=== PATIENT | female | born 1960 | race African-American/Black ===

== ENCOUNTER 2024-05-16 09:35 | Inpatient (IN) | payer MEDICAID ==
[~2024-05-16] VITALS: Ht 154.9 cm; Wt 80.3 kg
[~2024-05-16 09:35] MED LIST: IBUP-1174
--- NOTE | 2024-05-16 09:43 | ECG ---
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
[2024-05-16 09:57] LABS: Basophils # (auto) 0 10 ^3/uL (0-0.2); Basophils % (auto) 0.9 % (0.0-2.0); Eosinophils # (auto) 0.1 10 ^3/uL (0-0.8); Eosinophils % (auto) 2.4 % (0.0-7.0); Hematocrit 42.2 % (36.0-46.0); Hemoglobin 14.3 g/dL (12.2-16.2); Lymphocytes # (auto) 2.7 10 ^3/uL (0.4-5.4); Lymphocytes % (auto) 51.3 % (10.0-50.0); Mean Corpuscular Hgb Conc. 33.9 g/dL (32.0-36.0); Mean Corpuscular Volume 88.5 fL (80.0-100.0); Monocytes # (auto) 0.5 10 ^3/uL (0-1.3); Monocytes % (auto) 9.6 % (0.0-12.0); Neutrophils # (auto) 1.9 10 ^3/uL (1.6-8.6); Neutrophils % (auto) 35.8 % (37.0-80.0); Nucleated Red Blood Cells % 0.1 %; Platelet Count (auto) 248 10^3/uL (140-450); Red Blood Cells 4.76 10^6/uL (4.0-5.20); Red Cell Distribution Width 14.4 % (11.8-14.3); White Blood Cell 5.3 10^3/uL (4.4-10.8)
[2024-05-16 09:58] VITALS: PULSE 67; RESP 17; O2SAT 97
[2024-05-16] MEDS: ASPirin 81 mg TAB PO ONE (09:58)
[2024-05-16 10:25] LABS: Partial Thromboplastin Time 26.3 SEC (24.5-34.5); Prothrombin Time 10.6 sec (9.3-11.8)
[2024-05-16 10:28] LABS: Alanine Aminotransferase 25 U/L (7-40); Albumin 4.5 g/dL (3.2-4.8); Alkaline Phosphatase 109 U/L (46-116); Anion Gap 10 (5-15); Aspartate Aminotransferase 19 U/L (13-40); BUN/Creatinine Ratio 20.3 (10.0-20.0); Blood Urea Nitrogen 15 mg/dL (9-23); Calcium 9.9 mg/dL (8.7-10.4); Carbon Dioxide 25 mmol/L (20-31); Chloride 107 mmol/L (98-107); Glucose 113 mg/dL (74-106); Magnesium 2.1 mg/dL (1.6-2.6); Potassium 3.4 mmol/L (3.5-5.1); Sodium 142 mmol/L (136-145)
[2024-05-16 10:29] LABS: Total Protein 7.6 g/dL (5.7-8.2)
--- NOTE | 2024-05-16 10:47 | ECG ---
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
--- NOTE | 2024-05-16 11:02 | DVH ---
EXAM: XY CHEST PORTABLE Indication: CP Technique: Single frontal view of the chest was obtained Comparison: None FINDINGS: Lines and Tubes: None Lungs: No focal consolidation. Pleura: No effusion. No pneumothorax. Cardiomediastinal contours: Unremarkable Bones: No acute osseous abnormality. IMPRESSION: No acute cardiopulmonary disease.
--- NOTE | 2024-05-16 11:31 | ED.PDOC ---
HPI Comments 63-year-old male who comes in with chief complaint of chest pain times approximately one week. The patient states that the chest pain was followed by shortness for breath. The pain is somewhat substernal and radiates towards the right. The patient was also having some left arm numbness. There has been no nausea or vomiting but there has been some mild diarrhea. There has been no fever or cough. She states that the chest pain is somewhat pressure-like. She was able to ambulate into the emergency department's without any difficulty. Chief Complaint: Chest Pain Time Seen by MD: 09:44 Primary Care Provider: jaden Reviewed Notes: Nurses Notes, Medications, Allergies Allergies: Coded Allergies: Penicillins (Verified Allergy, Unknown, 07/05/10) Home Meds Reported Medications Ibuprofen (Motrin Ib) 200 Mg Tab 07/05/10 Information Source: Patient Mode of Arrival: Ambulatory Severity: Mild Timing: Days Duration: Since onset Prehospital treatment: None Location: Chest (L) Radiation: Arm (L) Quality: Pressure Onset: At Rest Cardiac Risk Factors: Family History, HTN, Diabetes (Borderline diabetes) History of: None Modifying Factors: Nothing Associated Signs and Symptoms: SOB, Other (Diarrhea) Past Medical History PAST MEDICAL HISTORY: DM (Borderline diabetes), HTN Surgical History: Hernia Repair, Hysterectomy Surgical History (Other): Previous colon resection, knee surgery SHIPPING AND RECEIVING COORDINATOR History: No Pertinent SHIPPING AND RECEIVING COORDINATOR History Family History Family History: Unobtainable Social History Smoker: Non-Smoker Alcohol: Occasionally Drugs: Denies Drug Use Lives In: Home Constitutional: denies: chills, diaphoresis, fatigue, fever, malaise, sweats, weakness, others EENTM: denies: blurred vision, double vision, ear bleeding, ear discharge, ear drainage, ear pain, ear ringing, eye pain, eye redness, hearing loss, mouth pain, mouth swelling, nasal discharge, nose bleeding, nose congestion, nose pain, photophobia, tearing, throat pain, throat swelling, voice changes, others Respiratory: reports: SOB with excertion; denies: cough, hemoptysis, orthopnea, SOB at rest, shortness of breath, stridor, wheezing, others Cardiovascular: reports: chest pain; denies: dizzy spells, diaphoresis, Dyspnea on exertion, edema, irregular heart beat, left arm pain, lightheadedness, palpitations, PND, syncope, others Gastrointestinal: reports: diarrhea; denies: abdomen distended, abdominal pain, blood streaked bowels, constipated, dysphagia, difficulty swallowing, hematemesis, melena, nausea, poor appetite, poor fluid intake, rectal bleeding, rectal pain, vomiting, others Genitourinary: denies: abnormal vagina bleeding, burning, dyspareunia, dysuria, flank pain, frequency, hematuria, incontinence, pain, , vagina discharge, urgency, others Neurological: denies: dizziness, fainting, headache, left sided numbness, left sided weakness, numbness, paresthesia, pre-existing deficit, right sided numbness, right sided weakness, seizure, speech problems, tingling, tremors, weakness, others Musculoskeletal: denies: back pain, gout, joint pain, joint swelling, muscle pain, muscle stiffness, neck pain, others Integumetry: denies: bruises, change in color, change in hair/nails, dryness, laceration, lesions, lumps, rash, wounds, others Allergic/Immunocompromised: denies: Difficulty Healing, Frequent Infections, Hives, Itching, others Hematologic/Lymphatic: denies: anemia, blood clots, easy bleeding, easy bruising, swollen glands, others Endocrine: denies: excessive hunger, excessive sweating, excessive thirst, excessive urination, flushing, intolerance to cold, intolerance to heat, unexplained weight gain, unexplained weight loss, others Psychiatric: denies: anxiety, bipolar disorder, depression, hopeless, panic disorder, schizophrenia, sleepless, suicidal, others Physical Exam General Appearance: Moderate Distress HEENT: Normal ENT Inspection, Pharynx Normal, TMs Normal Neck: Full Range of Motion, Non-Tender, Normal, Normal Inspection Respiratory: Chest Non-Tender, Lungs Clear, No Accessory Muscle Use, No Respiratory Distress, Normal Breath Sounds Cardiovascular: No Edema, No JVD, No Murmur, No Gallop, Normal Peripheral Pulses, Regular Rate/Rhythm Breast Exam: Deferred Gastrointestinal: No Organomegaly, Non Tender, No Pulsatile Mass, Normal Bowel Sounds, Soft Genitalia: Deferred Pelvic: Deferred Rectal: Deferred Extremities: No calf tenderness, Normal capillary refill, Normal inspection, Normal range of motion, Non-tender, No pedal edema Musculoskeletal : Apperance: Normal Neurologic: Alert, platinumsmith II-XII nml as Tested, No Motor Deficits, Normal Affect, Normal Mood, No Sensory Deficits Cerebellar Function: Normal Reflexes: Normal Skin: Dry, Normal Color, Warm Lymphatic: No Adenopathy Was a procedure done? Was a procedure done?: No CP Differential Dx Differential Diagnosis: Angina, NC, Pulmonary Embolus Differential Diagnosis: CHF X-Ray, Labs, Meds, VS Vital Signs Date Time Temp Pulse Resp B/P (MAP) Pulse Ox O2 Delivery O2 Flow Rate FiO2 05/16/24 12:23 62 05/16/24 10:45 62 05/16/24 09:58 97.7 67 17 135/93 (107) 97 97.7 05/16/24 09:58 67 17 97 Room Air* 0 21 05/16/24 09:42 65 05/16/24 09:37 98.4 88 17 123/97 (106) 97 Lab Test 05/16/24 13:13 05/16/24 11:07 05/16/24 11:00 05/16/24 09:42 Range/Units Troponin I High Sensitivity Pending < 3 L < 3 L </=34 ng/L Urine Color Light-yellow Yellow Urine Clarity Clear Clear Urine pH 6.5 5.0-9.0 Urine Specific [place] 1.013 1.001-1.035 Urine Protein Negative Negative Urine Ketones Negative Negative Urine Blood Negative Negative /uL Urine Nitrite Negative Negative Urine Bilirubin Negative Negative Urine Urobilinogen Normal Negative mg/dL Urine Leukocyte Esterase Negative Negative /uL Urine RBC 1 0 - 4 /hpf Urine WBC None seen 0 - 5 /hpf Urine Squamous Epithelial Cells Few <5 /hpf Urine Bacteria None seen None Seen /hpf Urine Mucus Few None Seen Urine Glucose Normal Normal mg/dL White Blood Count 5.3 4.4-10.8 10^3/uL Red Blood Count 4.76 4.0-5.20 10^6/uL Hemoglobin 14.3 12.2-16.2 g/dL Hematocrit 42.2 36.0-46.0 % Mean Corpuscular Volume 88.5 80.0-100.0 fL Mean Corpuscular Hemoglobin 30.0 28.0-32.0 pg Mean Corpuscular Hemoglobin Concent 33.9 32.0-36.0 g/dL Red Cell Distribution Width 14.4 H 11.8-14.3 % Platelet Count 248 140-450 10^3/uL Mean Platelet Volume 8.6 6.9-10.8 fL Neutrophils (%) (Auto) 35.8 L 37.0-80.0 % Lymphocytes (%) (Auto) 51.3 H 10.0-50.0 % Monocytes (%) (Auto) 9.6 0.0-12.0 % Eosinophils (%) (Auto) 2.4 0.0-7.0 % Basophils (%) (Auto) 0.9 0.0-2.0 % Neutrophils # (Auto) 1.9 1.6-8.6 10 ^3/uL Lymphocytes # (Auto) 2.7 0.4-5.4 10 ^3/uL Monocytes # (Auto) 0.5 0-1.3 10 ^3/uL Eosinophils # (Auto) 0.1 0-0.8 10 ^3/uL Basophils # (Auto) 0 0-0.2 10 ^3/uL Nucleated Red Blood Cells 0.1 % Prothrombin Time 10.6 9.3-11.8 sec Prothrombin Time INR 1.00 0.9-1.15 Activated Partial Thromboplast Time 26.3 24.5-34.5 SEC Sodium Level 142 136-145 mmol/L Potassium Level 3.4 L 3.5-5.1 mmol/L Chloride Level 107 98-107 mmol/L Carbon Dioxide Level 25 20-31 mmol/L Anion Gap 10 5-15 Blood Urea Nitrogen 15 9-23 mg/dL Creatinine 0.74 0.550-1.02 mg/dL Glomerular Filtration Rate Calc 91 >90 mL/min BUN/Creatinine Ratio 20.3 H 10.0-20.0 Serum Glucose 113 H 74-106 mg/dL Calcium Level 9.9 8.7-10.4 mg/dL Magnesium Level 2.1 1.6-2.6 mg/dL Total Bilirubin 1.0 0.2-1.0 mg/dL Aspartate Amino Transferase (AST) 19 13-40 U/L Alanine Aminotransferase (ALT) 25 7-40 U/L Alkaline Phosphatase 109 46-116 U/L B-Type Natriuretic Peptide 25.66 0-100 pg/mL Total Protein 7.6 5.7-8.2 g/dL Albumin 4.5 3.2-4.8 g/dL Current Medications Medications (Trade) Dose Ordered Sig/Sp Route Start Time Stop Time Status Last Admin Aspirin 162 mg ONCE ONCE PO 05/16/24 10:00 05/16/24 10:01 DC 05/16/24 09:58 IV Hep-Lock was established The patient was given aspirin here in the emergency department's The CBC and chemistry panel are within normal limits The urine test is negative for any infection At this time, the patient was being admitted to the hospitalist The BNP is 25.66 At this time, the patient is being admitted with a diagnosis of acute myocardial ischemia Images Reviewed?: Images reviewed and evaluated by me Time of 1ST Reevaluation: 11:55 Reevaluation 1ST: Unchanged Patient Education/Counseling: Diagnosis, Treatment, Prognosis Family Education/Counseling: No Family Present Departure 1 Departure Time of Disposition: 13:35 Impression: Primary Impression: Acute myocardial ischemia Disposition: ADMITTED INPATIENT Admit to: [facility] Condition: Fair Critical Care Note Critical Care Time?: No Stability Stability form required: Yes Unstable for transfer: Telemetry monitoring (Telemetry monitoring required), ED Physician Assesment (Clinical assesment) Heart Score Heart Score: Heart Score Response (Comments) Value History Moderate Suspicious 1 EKG Repolarization Disturb 1 Age 45-64 1 Risk Factors >3 or Hx ASHD 2 Troponin Normal limit 0 Total 5 LON BELL MD May 16, 2024 11:31
[2024-05-16 12:16] LABS: Urine Bacteria None Seen /hpf (None Seen); Urine WBC None Seen /hpf (0 - 5)
[2024-05-16 12:27] LABS: Urine Blood Negative /uL (Negative); Urine Clarity Clear (Clear); Urine Color Light-Yellow (Yellow); Urine Mucus FEW (None Seen); Urine Protein, UAD Negative (Negative); Urine Specific Gravity 1.013 (1.001-1.035); Urine Urobilinogen Normal (Negative); Urine pH 6.5 (5.0-9.0)
--- NOTE | 2024-05-16 14:03 | ECG ---
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
[2024-05-16 17:45] VITALS: BP 130/95; PULSE 63; RESP 18; TEMP 97.8; O2SAT 94
[2024-05-16] MEDS ORDERED: hydrALAZINE HCL 10 MG TAB PO PRN (22:00)
[2024-05-16] MEDS ORDERED: ACETAMINOPHEN 325 MG TAB PO PRN (22:00)
[2024-05-16] MEDS ORDERED: MORPHINE SULFATE INJ 2 MG/ml SYRG IV PRN (22:00)
[2024-05-16] MEDS ORDERED: NITROGLYCERIN 0.4 MG SL TAB SL PRN (22:00)
[2024-05-16] MEDS ORDERED: MELATONIN 5 MG TAB PO PRN (22:00)
[2024-05-16] MEDS ORDERED: ONDANSETRON HCL 4 MG/2 ML VIAL IV PRN (22:00)
[2024-05-16] MEDS: ATORVASTATIN 20 MG TAB PO SCH (22:34)
[2024-05-16 23:32] VITALS: PULSE 63; RESP 16; O2SAT 94
[2024-05-17] VITALS (9 sets, daily range): BP systolic 111–136; BP diastolic 74–96; PULSE 48–70; RESP 16–20; TEMP 96.8–98.4; O2SAT 94–99
--- NOTE | 2024-05-17 00:25 | DVHHP2 ---
Admitting Diagnosis: Chest pain rule out ACS History of Present Illness History Source: Patient Exam Limitations: No limitations HPI Mrs. Becki Sears is a 63 yo female with a history of DM, hypertension, who presents with a chief complaint of midsternal chest pain/pressure like radiating to left arm and neck x 2-3 months on and off worsening yesterday. Patient denies nausea, vomiting, abdominal pain, diarrhea, constipation, headaches, dizziness, fevers, chills. Home Meds Reported Medications Cholecalciferol (VITAMIN D3) 2,000 Unit Tab, 2000 UNIT OR, TAB 05/17/24 Amlodipine Besylate (Amlodipine Besylate) 5 Mg Tab, 5 MG PO DAILY for 30 Days, MG 05/17/24 Ibuprofen (Motrin Ib) 200 Mg Tab 07/05/10 Past Medical History Cardiac: HTN Pulmonary: No pertinent Hx Central Nervous System: No pertinent Hx GI: No pertinent Hx Hemotology/Oncology: No pertinent Hx Hepatobiliary: No pertinent Hx Psychiatric: No pertinent Hx Musculoskeletal: No pertinent Hx Rheumotologic: No pertinent Hx Infectious Disease: No peritnent Hx ENT: No pertinent Hx Renal/: No pertinent Hx Endocrine: NIDDM Dermatology: No pertinent Hx Past Surgical History: Cholecystectomy, Hernia repair, Hysterctomy Smoker: No Hx (Negative) Alocohol: Occassional Drugs: None Lives with: With family Domestic Violence: Neg Review of Systems Constitutional: No symptom reported Ears, Nose, & Throat: No symptom reported Eyes: No symptom reported Pulmonary/Respiratory: No symptom reported Cardiovascular: Chest Pain Gastrointestinal: No symptom reported Genitourinary: No symptom reported Musculoskeletal: No symptom reported Skin: No symptom reported Psychiatric: No symptom reported Endocrine: No symptom reported Hemotologic/Lymphatic: No symptom reported H&P Exam Vital Signs Vital Signs Date Time Temp Pulse Resp B/P (MAP) Pulse Ox O2 Delivery O2 Flow Rate FiO2 05/16/24 23:51 97.9 65 20 128/95 (106) 94 97.9 05/16/24 23:32 Room Air* 0 21 General Appeara: Well developed, Well nourished, Normal Appearance Head Exam: Normal inspection Neck Exam: Normal inspection, Non-tender, Normal alignment Eye Exam: bilateral eye Normal inspection, bilateral eye PERRL, bilateral eye EOMI Ear Exam: bilateral ear Auricle normal Nasal Exam: Normal inspection Mouth: Normal Inspection Pulmonary/Respiratory: Normal inspection, Normal breath sounds, Chest non- tender, Lungs clear Cardiovascular/Chest: Normal inspection, Regular rate, Normal Rhythm Peripheral Pulses: 2+ dorsalis pedis (R), 2+ dorsalis pedis (L), 2+ Radial (R), 2+ Radial (L) Abdominal Exam: Normal bowel sounds, Soft, No tenderness Rectal Exam: Deferred Back Exam: Normal inspection Neuro/Mental St: Alert, Oriented Appearance: Appropriate appearance, Appropriate insight Eye contact/ Speech: Cooperative, Good eye contact, Normal speech Thoughts/Psych: Normal thought pattern Skin Exam: Normal inspection, Normal color, Warm/dry Lymphatic: Normal inspection Labs/Xrays Labs Test 05/16/24 22:19 05/16/24 11:00 05/16/24 09:42 Range/Units Troponin I High Sensitivity < 3 L </=34 ng/L Urine Color Light-yellow Yellow Urine Clarity Clear Clear Urine pH 6.5 5.0-9.0 Urine Specific [place] 1.013 1.001-1.035 Urine Protein Negative Negative Urine Ketones Negative Negative Urine Blood Negative Negative /uL Urine Nitrite Negative Negative Urine Bilirubin Negative Negative Urine Urobilinogen Normal Negative mg/dL Urine Leukocyte Esterase Negative Negative /uL Urine RBC 1 0 - 4 /hpf Urine WBC None seen 0 - 5 /hpf Urine Squamous Epithelial Cells Few <5 /hpf Urine Bacteria None seen None Seen /hpf Urine Mucus Few None Seen Urine Glucose Normal Normal mg/dL White Blood Count 5.3 4.4-10.8 10^3/uL Red Blood Count 4.76 4.0-5.20 10^6/uL Hemoglobin 14.3 12.2-16.2 g/dL Hematocrit 42.2 36.0-46.0 % Mean Corpuscular Volume 88.5 80.0-100.0 fL Mean Corpuscular Hemoglobin 30.0 28.0-32.0 pg Mean Corpuscular Hemoglobin Concent 33.9 32.0-36.0 g/dL Red Cell Distribution Width 14.4 H 11.8-14.3 % Platelet Count 248 140-450 10^3/uL Mean Platelet Volume 8.6 6.9-10.8 fL Neutrophils (%) (Auto) 35.8 L 37.0-80.0 % Lymphocytes (%) (Auto) 51.3 H 10.0-50.0 % Monocytes (%) (Auto) 9.6 0.0-12.0 % Eosinophils (%) (Auto) 2.4 0.0-7.0 % Basophils (%) (Auto) 0.9 0.0-2.0 % Neutrophils # (Auto) 1.9 1.6-8.6 10 ^3/uL Lymphocytes # (Auto) 2.7 0.4-5.4 10 ^3/uL Monocytes # (Auto) 0.5 0-1.3 10 ^3/uL Eosinophils # (Auto) 0.1 0-0.8 10 ^3/uL Basophils # (Auto) 0 0-0.2 10 ^3/uL Nucleated Red Blood Cells 0.1 % Prothrombin Time 10.6 9.3-11.8 sec Prothrombin Time INR 1.00 0.9-1.15 Activated Partial Thromboplast Time 26.3 24.5-34.5 SEC Sodium Level 142 136-145 mmol/L Potassium Level 3.4 L 3.5-5.1 mmol/L Chloride Level 107 98-107 mmol/L Carbon Dioxide Level 25 20-31 mmol/L Anion Gap 10 5-15 Blood Urea Nitrogen 15 9-23 mg/dL Creatinine 0.74 0.550-1.02 mg/dL Glomerular Filtration Rate Calc 91 >90 mL/min BUN/Creatinine Ratio 20.3 H 10.0-20.0 Serum Glucose 113 H 74-106 mg/dL Calcium Level 9.9 8.7-10.4 mg/dL Magnesium Level 2.1 1.6-2.6 mg/dL Total Bilirubin 1.0 0.2-1.0 mg/dL Aspartate Amino Transferase (AST) 19 13-40 U/L Alanine Aminotransferase (ALT) 25 7-40 U/L Alkaline Phosphatase 109 46-116 U/L B-Type Natriuretic Peptide 25.66 0-100 pg/mL Total Protein 7.6 5.7-8.2 g/dL Albumin 4.5 3.2-4.8 g/dL Assessment/Plan Problem List: (1) Chest pain Plan 63 yo female with known history of DM, hypertension presents to the hospital with chest pain. 1. Chest pain rule out ACS -Cardiology consultation, 2D echocardiogram, ASA, statin, serial troponin levels -Analgesics as needed Discussed all above with patient who verbalizes agreement and understanding of care plan. All questions were answered. Discussed assessment and care plan with supervising MD. Plan discussed with: Patient, Other Code Visit Code Visit Total Time (mins): 45 Additional Comments Additional Comments Additional Comments Patient is seen and evaluated and admitted by nurse practitioner claims auditor. Patient's chart is reviewed. I agree with the nurse practitioner's evaluation, documentation, assessment and care plan as outlined. DEEPTHI HEMPHILL May 17, 2024 00:25 KARMEN HENRIQUEZ MD May 17, 2024 16:52
[2024-05-17] MEDS: HYDROcodone-ACET 5/325MG TAB PO PRN (00:43)
[2024-05-17] MEDS ORDERED: CHOL20007 OR (01:19)
[2024-05-17] MEDS ORDERED: AMLO1TAB22 PO (01:19)
[2024-05-17 07:50] LABS: Triglycerides 216 mg/dL (< 150)
[2024-05-17 07:51] LABS: LDL Cholesterol 110 mg/dL (< 100)
[2024-05-17 07:52] LABS: Cholesterol 185 mg/dL (< 200); HDL Cholesterol 42 mg/dL (40-59)
[2024-05-17] MEDS: ENOXAPARIN SOD 40 MG/0.4 ML SYRINGE SC SCH (09:47)
[2024-05-17] MEDS: ASPirin 81 mg TAB PO SCH (09:47)
[2024-05-17] MEDS: FAMOTIDINE 20 MG TAB PO SCH (09:47)
[2024-05-17] MEDS: POTASSIUM CHL 20 Meq TABLET PO ONE (12:18)
--- NOTE | 2024-05-17 15:58 | DVHSR ---
APPROVED REPORT EXAM: Two-dimensional and M-mode echocardiogram with Doppler and color Doppler. Blood Pressure: 111/74 mmHg INDICATION Chest Pain RISK FACTORS Height: 61, Weight: 189 DIMENSIONS LVDd4.7 (3.8-5.7cm)LA (2D)3.5 (1.9-4.0cm)Aortic Root3.4 (2.0-3.7cm) LVDs3.1 (2.5-4.0cm)LA (MM) (1.9-4.0cm)Aortic Cusp Exc1.4 (1.5-2.0cm) EF (%) 62.0 (55-70%)Rt. Atrium (1.9-4.0cm)Asc. Aorta cm IVSd1.1 (0.7-1.1cm)RV (D) (1.8-2.4cm) PWd1.2 (0.7-1.1cm) Mitral Valve MitralMitral Stenosis E wave0.74m/sMV Mean GR.mmHg A wave0.63m/sMV Peak GR.78mmHg E/A ratio1.22D MVAcm2 DECEL [id number] 1/2 [id number] IVRTmsDop MVA2.69cm2 Aortic Valve Aortic ValveAortic Stenosis V11.19m/Joan Mean GR.3mmHg V21.23m/Joan Peak GR.6mmHg LVOT Diameter2.1 (1.8-2.4cm)Doppler AVA3.35cm2 Pulmonic Valve V20.93m/s Other Information Technically limited study due to body habitus. Conclusion Normal left ventricular size and dimension. Normal left ventricular systolic function estimated ejec tion fraction 55%. There is a grade 1 diastolic dysfunction. Normal right ventricular size and dimension. Normal right ventricular systolic function. Normal biatrial size and dimension. Normal aortic valve structure and function. Normal mitral valve structure and function. Normal tricuspid valve structure and function. The pulmonary valve is grossly normal. No pericardial effusion.
[2024-05-18] VITALS (13 sets, daily range): BP systolic 120–145; BP diastolic 45–111; PULSE 59–93; RESP 13–23; TEMP 97.6–98.5; O2SAT 93–99
--- NOTE | 2024-05-18 10:09 | DVHINCON2 ---
HISTORY OF PRESENT ILLNESS: The patient is a 63-year-old lady who comes complaining of chest pain, substernal in nature with radiating to the left breast and neck of about 1-week duration. She initially thought it was related to gastric reflux; however, it persisted with substernal pressure and increasing with severity and intensity. She does have a past history of hysterectomy and oophorectomy. History of colon mass that was removed, that turned out to be noncancerous. is her primary care doctor. SHE IS ALLERGIC TO PENICILLIN. She does not have a history of diabetes or hypertension that she knows of. She is nondrinker, nonsmoker. She is single, has 2 children, lives alone. FAMILY HISTORY: Strongly positive for coronary artery disease. Her mother underwent bypass with a history of diabetes and hypertension. SOCIAL HISTORY: As noted, she is a nondrinker, nonsmoker. REVIEW OF SYSTEMS: CONSTITUTIONAL: From a constitutional standpoint negative. ENT: Negative for double vision, discharge, ear pain, eye pain, hearing loss. CARDIAC AND RESPIRATORY: As noted above with a history of shortness of breath, hemoptysis or orthopnea. History of chest pain recently. Diaphoresis negative. GASTROINTESTINAL AND GENITOURINARY: Negative except for that noted above. NEUROLOGICAL: Negative. MUSCULOSKELETAL: Negative. INTEGUMENTARY: Negative. ALLERGY AND IMMUNOLOGY: Negative. HEMATOLOGICAL: Negative. ENDOCRINE: Negative. PSYCHIATRIC: Negative. PHYSICAL EXAMINATION: GENERAL: She is awake and responsive. She is in no acute distress at this time. VITAL SIGNS: Her blood pressure is with a respiratory rate of 17, pulse of 64. HEENT: Reveals an atraumatic and normocephalic skull. Her pupils are equally reactive. Orally well hydrated. NECK: Trachea is central. Neck is supple. Thyroid is not palpable. There is no jugular venous distention and no bruits. LUNGS: Reveal good air entry. No rales or rhonchi. HEART: Reveals a regular S1, S2, soft S4. ABDOMEN: Unremarkable. EXTREMITIES: Reveal adequate perfusion without clubbing or cyanosis, no edema. NEUROLOGIC: Intact. INTEGUMENTARY: Otherwise within normal limits. LABORATORY DATA: WBC count 5000, hematocrit 42. Chemistry panel is for the most part unremarkable. LDL is 110, triglycerides are 216. EKG shows nonspecific changes across the anterior lateral leads. Chest x-ray is unremarkable. Chemistry panel shows negative troponins, no indication of myocardial injury. BUN and creatinine is within normal limits. Hemoglobin A1c is 5.9. IMPRESSION: Chest pain, rule out coronary artery disease, hypertension. Increased BMI. Strong family history of coronary artery disease and hyperlipidemia. RECOMMENDATIONS: Given her multiple risk factors and recurrent symptoms, I would suggest she undergo cardiac catheterization. The patient agrees. We will schedule for an angiogram today. MD SABINA Chirinos/VIKTORIYA/AMI TID: [id number] RECEIPT: [id number]
[2024-05-18] MEDS: IODIXANOL 320MG/ML 100ML BTL IV ONE (15:32)
[2024-05-18] MEDS: HEPARIN IN NS 1000Units/500mL 1,500 ML ONE (15:32)
[2024-05-18] MEDS: MIDAZOLAM HCL 2MG/2ML 2ml VIAL (1mg/ml) ONE (16:20)
[2024-05-18] MEDS: SODIUM CHL 0.9% 0 ML ONE (16:20)
[2024-05-18] MEDS: ANGIOMAX 250 MG VIAL IV ONE (16:20)
[2024-05-18] MEDS: fentaNYL CITRATE 100 MCG/2 ML VL ONE (16:20)
[2024-05-18] MEDS: LIDOCAINE 2%HCL (LOCAL ANESTH.) INJ 20ML MDV ONE (16:20)
[2024-05-18] MEDS: VERAPAMIL 2.5MG/ML INJ 2ML VIAL IV ONE (16:21)
[2024-05-18] MEDS: HEPARIN SODIUM (PORCINE) 5000 UNITS/ML 1ML VIAL ONE (16:21)
--- NOTE | 2024-05-18 16:27 | DVHOP ---
PROCEDURE PERFORMED: Left heart catheterization, bilateral cine coronary angiography, left ventriculography. PREOPERATIVE DIAGNOSIS: Coronary artery disease. POSTOPERATIVE DIAGNOSIS: Normal coronary arteries. DESCRIPTION OF PROCEDURE: Prior local anesthesia with 2% lidocaine to the right wrist, full informed consent obtained. The patient was prepped and draped in the usual fashion, followed by placement of a 6-Samoan sheath into the right radial artery, through which a Ilya catheter was used for ventriculography and cannulation of both right and left coronary ostia without complications. HEMODYNAMICS: Aortic blood pressure was 130/70, end-diastolic pressure was 16. No gradient across the aortic valve on pullback. CORONARY ANATOMY: RCA is a large vessel. It is normal in its proximal, mid and distal segments. PDA and posterolateral branches are normal. The left main is large and normal. Left anterior descending is large and normal with 2 diagonals free of significant disease. The circumflex is large with 2 marginals free of significant disease. Ventriculography in the LUGO projection shows an EF of approximately 65%. IMPRESSION: Normal left ventricular end-diastolic pressure at rest, normal ejection fraction, no coronary artery disease. RECOMMENDATIONS: Medical therapy is warranted. Continue risk factor modification. Jarred Saul MD GAP/VIS TID: [id number] RECEIPT: [id number]
--- NOTE | 2024-05-18 16:34 | DVHPN2 ---
Progress Note - Dictate Date Seen: May 18, 2024 Medical Necessity Reason Pt with a Central, PICC or Fol: No Subjective She was seen and evaluated by patternmaker and undergoing coronary angiogram this afternoon. vital signs Vital Sign Date Time Temp Pulse Resp B/P (MAP) Pulse Ox O2 Delivery O2 Flow Rate FiO2 05/18/24 13:00 98.5 93 16 132/93 (106) 93 98.5 05/17/24 20:00 Room Air* 0 21 Total Intake and Output 05/17/24 05/17/24 05/18/24 15:00 23:00 07:00 Intake Total 2160 ml 300 ml Balance 2160 ml 300 ml medications Current Medications Medications Dose Ordered Sig/Sp Route Start Time Stop Time Status Last Admin Dose Admin Nitroglycerin 0.4 mg Q5MINP PRN SL 05/16/24 22:00 Morphine Sulfate 2 mg Q30M PRN IV 05/16/24 22:00 Ondansetron HCl 4 mg Q6HPRN PRN IV 05/16/24 22:00 Aspirin 81 mg DAILY PO 05/17/24 10:00 05/17/24 09:47 81 MG Atorvastatin Calcium 40 mg HS PO 05/16/24 22:00 05/17/24 21:23 40 MG Hydralazine HCl 10 mg Q6HPRN PRN PO 05/16/24 22:00 Enoxaparin Sodium 40 mg DAILY SC 05/17/24 10:00 Hold 05/17/24 09:47 40 MG Melatonin 5 mg ONCE@2200 PRN PO 05/16/24 22:00 Acetaminophen/ Hydrocodone Bitart 1 tab Q6HPRN PRN PO 05/16/24 22:00 05/17/24 00:43 1 TAB Acetaminophen 650 mg Q6HPRN PRN PO 05/16/24 22:00 Famotidine 20 mg DAILY PO 05/17/24 10:00 05/18/24 10:01 20 MG objective 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 laboratory and microbiology Laboratory Tests 05/16/24 09:42 Test 05/16/24 09:42 Range/Units Serum Glucose 113 H 74-106 mg/dL Assessment/Plan Discussed with the nurse. Continue present management. Once she comes back from golf course laborer resume her cardiac diet. Resume other cardiac medications and recommendations from the patternmaker. We will monitor her overnight and if she remains stable consider discharge home tomorrow or follow further recommendations from the patternmaker as appropriate. Problems(with codes): (1) Acute myocardial ischemia (2) Chest pain Plan discussed with: KARMEN Muse MD May 18, 2024 16:34
[2024-05-19 01:00] VITALS: BP 132/89; PULSE 62; RESP 18; TEMP 97.9; O2SAT 96
[2024-05-19 05:00] VITALS: BP 108/82; PULSE 47; RESP 18; TEMP 97.7; O2SAT 95
[2024-05-19 08:00] VITALS: PULSE 65; PULSE 72; RESP 20; O2SAT 96
[2024-05-19 09:00] VITALS: BP 107/73; PULSE 65; RESP 20; TEMP 97.6; O2SAT 95
[2024-05-19 09:12] LABS: Hepatitis B Surface Antigen Negative (Negative)
[2024-05-19 09:33] LABS: Hepatitis C Antibody Negative (Negative)
[2024-05-19 13:00] VITALS: BP 106/71; PULSE 55; RESP 18; TEMP 97.6; O2SAT 95
[2024-05-19] MEDS ORDERED: ATOR20TA50 PO (13:55)
[2024-05-19] MEDS ORDERED: PANT40TA57 PO (13:55)
--- NOTE | 2024-05-19 13:56 | DVHDS2 ---
Discharge Summary Date of Admission May 16, 2024 at 21:47 Date of Discharge: May 19, 2024 Admitting Diagnosis Chest pain Labs/Diagnostic Data: Laboratory Results Test 05/17/24 13:52 05/17/24 06:31 05/16/24 11:00 05/16/24 09:42 Troponin I High Sensitivity 3 ng/L (</=34) Hemoglobin A1c 5.9 % A1C (<5.7) Triglycerides Level 216 mg/dL (< 150) Cholesterol Level 185 mg/dL (< 200) LDL Cholesterol 110 mg/dL (< 100) HDL Cholesterol 42 mg/dL (40-59) Hepatitis B Surface Antigen Negative (Negative) Hepatitis C Antibody Negative (Negative) Urine Color Light-yellow (Yellow) Urine Clarity Clear (Clear) Urine pH 6.5 (5.0-9.0) Urine Specific [place] 1.013 (1.001-1.035) Urine Protein Negative (Negative) Urine Ketones Negative (Negative) Urine Blood Negative /uL (Negative) Urine Nitrite Negative (Negative) Urine Bilirubin Negative (Negative) Urine Urobilinogen Normal mg/dL (Negative) Urine Leukocyte Esterase Negative /uL (Negative) Urine RBC 1 /hpf (0 - 4) Urine WBC None seen /hpf (0 - 5) Urine Squamous Epithelial Cells Few /hpf (<5) Urine Bacteria None seen /hpf (None Seen) Urine Mucus Few (None Seen) Urine Glucose Normal mg/dL (Normal) White Blood Count 5.3 10^3/uL (4.4-10.8) Red Blood Count 4.76 10^6/uL (4.0-5.20) Hemoglobin 14.3 g/dL (12.2-16.2) Hematocrit 42.2 % (36.0-46.0) Mean Corpuscular Volume 88.5 fL (80.0-100.0) Mean Corpuscular Hemoglobin 30.0 pg (28.0-32.0) Mean Corpuscular Hemoglobin Concent 33.9 g/dL (32.0-36.0) Red Cell Distribution Width 14.4 % (11.8-14.3) Platelet Count 248 10^3/uL (140-450) Mean Platelet Volume 8.6 fL (6.9-10.8) Neutrophils (%) (Auto) 35.8 % (37.0-80.0) Lymphocytes (%) (Auto) 51.3 % (10.0-50.0) Monocytes (%) (Auto) 9.6 % (0.0-12.0) Eosinophils (%) (Auto) 2.4 % (0.0-7.0) Basophils (%) (Auto) 0.9 % (0.0-2.0) Neutrophils # (Auto) 1.9 10 ^3/uL (1.6-8.6) Lymphocytes # (Auto) 2.7 10 ^3/uL (0.4-5.4) Monocytes # (Auto) 0.5 10 ^3/uL (0-1.3) Eosinophils # (Auto) 0.1 10 ^3/uL (0-0.8) Basophils # (Auto) 0 10 ^3/uL (0-0.2) Nucleated Red Blood Cells 0.1 % Prothrombin Time 10.6 sec (9.3-11.8) Prothrombin Time INR 1.00 (0.9-1.15) Activated Partial Thromboplast Time 26.3 SEC (24.5-34.5) Sodium Level 142 mmol/L (136-145) Potassium Level 3.4 mmol/L (3.5-5.1) Chloride Level 107 mmol/L (98-107) Carbon Dioxide Level 25 mmol/L (20-31) Anion Gap 10 (5-15) Blood Urea Nitrogen 15 mg/dL (9-23) Creatinine 0.74 mg/dL (0.550-1.02) Glomerular Filtration Rate Calc 91 mL/min (>90) BUN/Creatinine Ratio 20.3 (10.0-20.0) Serum Glucose 113 mg/dL (74-106) Calcium Level 9.9 mg/dL (8.7-10.4) Magnesium Level 2.1 mg/dL (1.6-2.6) Total Bilirubin 1.0 mg/dL (0.2-1.0) Aspartate Amino Transferase (AST) 19 U/L (13-40) Alanine Aminotransferase (ALT) 25 U/L (7-40) Alkaline Phosphatase 109 U/L (46-116) B-Type Natriuretic Peptide 25.66 pg/mL (0-100) Total Protein 7.6 g/dL (5.7-8.2) Albumin 4.5 g/dL (3.2-4.8) Other Laboratory Tests 05/16/24 09:42 Brief Hx & Hospital Course: Mrs. Becki Sears is a 63 yo female with a history of DM, hypertension, who presents with a chief complaint of midsternal chest pain/pressure like radiating to left arm and neck x 2-3 months on and off worsening yesterday. Patient denies nausea, vomiting, abdominal pain, diarrhea, constipation, headaches, dizziness, fevers, chills. Patient is admitted and evaluated by project control officer. Troponins normal. Based on her history she underwent a coronary angiogram revealed very mild coronary artery disease recommended medical therapy. Patient counseled and educated regarding diet exercise weight loss and good cholesterol and blood pressure control. Otherwise patient remained pain-free and clinically stable. Having had necessary workup and evaluations and being back to normal baseline status it is felt she could be safely discharged home. [place] her chest pain possibly also related to esophageal spasms/reflux do therefore she is recommended to take proton pump inhibitor for 30 days. Patient verbalized understanding of this, verbalized understanding over hospital diagnosis, treatment she received, discharge medications, discharge instructions and agree with the discharge follow-up plan of care. Consults/Reason for consult EXAM: Two-dimensional and M-mode echocardiogram with Doppler and color Doppler. Blood Pressure: 111/74 mmHg INDICATION Chest Pain RISK FACTORS Height: 61, Weight: 189 DIMENSIONS LVDd 4.7 (3.8-5.7cm) LA (2D) 3.5 (1.9-4.0cm) Aortic Root 3.4 (2.0- 3.7cm) LVDs 3.1 (2.5-4.0cm) LA (MM) (1.9-4.0cm) Aortic Cusp Exc 1.4 (1.5- 2.0cm) EF (%) 62.0 (55-70%) Rt. Atrium (1.9-4.0cm) Asc. Aorta cm IVSd 1.1 (0.7-1.1cm) RV (D) (1.8-2.4cm) PWd 1.2 (0.7-1.1cm) Mitral Valve Mitral Mitral Stenosis E wave 0.74m/s MV Mean GR. mmHg A wave 0.63m/s MV Peak GR. 78mmHg E/A ratio 1.2 2D MVA cm2 DECEL Time 268ms PRESS 1/2 Time 82ms IVRT ms Dop MVA 2.69cm2 Aortic Valve Aortic Valve Aortic Stenosis V1 1.19m/s AO Mean GR. 3mmHg V2 1.23m/s AO Peak GR. 6mmHg LVOT Diameter 2.1 (1.8-2.4cm) Doppler MEHUL 3.35cm2 Pulmonic Valve V2 0.93m/s Other Information Technically limited study due to body habitus. Conclusion Normal left ventricular size and dimension. Normal left ventricular systolic function estimated ejection fraction 55%. There is a grade 1 diastolic dysfunction. Normal right ventricular size and dimension. Normal right ventricular systolic function. Normal biatrial size and dimension. Normal aortic valve structure and function. Normal mitral valve structure and function. Normal tricuspid valve structure and function. The pulmonary valve is grossly normal. No pericardial effusion. SIGNED BY: ANDRE CARDONA MD SIGNED DATE/TIME: 05/17/24 1558 Operations or Procedures PROCEDURE PERFORMED: Left heart catheterization, bilateral cine coronary angiography, left ventriculography. PREOPERATIVE DIAGNOSIS: Coronary artery disease. POSTOPERATIVE DIAGNOSIS: Normal coronary arteries. DESCRIPTION OF PROCEDURE: Prior local anesthesia with 2% lidocaine to the right wrist, full informed consent obtained. The patient was prepped and draped in the usual fashion, followed by placement of a 6-Maori sheath into the right radial artery, through which a Ilya catheter was used for ventriculography and cannulation of both right and left coronary ostia without complications. HEMODYNAMICS: Aortic blood pressure was 130/70, end-diastolic pressure was 16. No gradient across the aortic valve on pullback. CORONARY ANATOMY: RCA is a large vessel. It is normal in its proximal, mid and distal segments. PDA and posterolateral branches are normal. The left main is large and normal. Left anterior descending is large and normal with 2 diagonals free of significant disease. The circumflex is large with 2 marginals free of significant disease. Ventriculography in the LUGO projection shows an EF of approximately 65%. IMPRESSION: Normal left ventricular end-diastolic pressure at rest, normal ejection fraction, no coronary artery disease. RECOMMENDATIONS: Medical therapy is warranted. Continue risk factor modification. Jarred Saul MD GAP/VIS TID: [id number] RECEIPT: [id number] Condition at Discharge: Stable Final Diagnosis/Problems List non cardiac chest pain, gerd Discharge Disposition: Home Discharge Instruct/Medications Diet: Consistent carbohydrate, Cardiac 2g Na,low cholest Activity: No Restrictions, As Tolerated Follow Up/Referral: PCP 2 weeks for any recurrent chest pain Medications: as prescribed and home meds New Medications: Atorvastatin Calcium (Atorvastatin Calcium) 20 Mg Tab 1 TAB PO DAILY, #30 TAB Pantoprazole Sodium Sesquihydr (Pantoprazole Sodium Dr) 40 Mg Tab 40 MG PO DAILY, #60 TAB Continued Medications: Amlodipine Besylate (Amlodipine Besylate) 5 Mg Tab 5 MG PO DAILY for 30 Days, MG Cholecalciferol (Vitamin D3) 2,000 Unit Tab 2000 UNIT OR, TAB Discontinued Medications: Ibuprofen (Motrin Ib) 200 Mg Tab Discharge Statement: "Patient was advised to return to the ER or call 911 if any headaches, dizziness, shortness of breath, chest pain, abdominal pain, bleeding, fevers, or worsening of medical condition. Patient was counseled about treatment plan, medications, possible side effects, patientverbalized understanding. All questions were answered to the best of my ability. This discharge took greater then 30 minutes in planning, reviewing documentation, counseling the patient, and discussing with other team members." ASSESSMENT ASSESSMENT Assessment non cardiac chest pain, gerd KARMEN HENRIQUEZ MD May 19, 2024 13:56
[2024-05-19 15:18] VITALS: TEMP 36.4
== END 2024-05-19 16:04 | disposition home or self-care (01) | DRG 243 ==
LOC: ER 09:35 → TELE 21:47 → TELE-WESTW 23:27
PROVIDERS: ADMIT Nurse Practitioner Family; ATTEND Internal Medicine
PROC: 4A023N7 Measurement of Cardiac Sampling and Pressure, Left Heart, Percutaneous Approach (ICD-10-PCS; principal; 2024-05-18)
PROC: B211YZZ Fluoroscopy of Multiple Coronary Arteries using Other Contrast (ICD-10-PCS; 2024-05-18)
PROC: B215YZZ Fluoroscopy of Left Heart using Other Contrast (ICD-10-PCS; 2024-05-18)
DX: K21.9 Gastro-esophageal reflux disease without esophagitis (principal); E11.9 Type 2 diabetes mellitus without complications; I10 Essential (primary) hypertension; Z88.0 Allergy status to penicillin; Z82.49 Family history of ischemic heart disease and other diseases of the circulatory system; Z83.3 Family history of diabetes mellitus; Z90.49 Acquired absence of other specified parts of digestive tract; Z90.710 Acquired absence of both cervix and uterus; Z79.84 Long term (current) use of oral hypoglycemic drugs
CPT/HCPCS: 36415; 71045; 80053; 80061; 81001; 83036; 83735; 83880; 84484; 85025; 85610; 85730; 86803; 86850; 86900; 86901; 87081; 87340; 93005; 93306; 99152; G0378; J2250; Q9967

== ENCOUNTER 2025-06-21 09:16 | Emergency (ER) | payer MEDICAID ==
[~2025-06-21] VITALS: Ht 154.9 cm; Wt 88.3 kg
[~2025-06-21 09:16] MED LIST changes: +AMLO1TAB22 PO; +ATOR20TA50 PO; +CHOL20007 OR; -IBUP-1174; +PANT40TA57 PO
[2025-06-21 09:23] VITALS: BP 107/67; PULSE 68; RESP 15; TEMP 98.1; O2SAT 95
--- NOTE | 2025-06-21 09:36 | ED.PDOC ---
GI ASSESSMENT HPI Comments A 64 YEAR OLD FEMALE PRESENTS TO THE ED WITH COMPLAINT OF ABDOMINAL PAIN. PATIENT REPORTS THAT SHE HAS BEEN EXPERIENCING EPIGASTRIC/UPPER ABDOMINAL PAIN INTERMITTENTLY FOR THE PAST 6 MONTHS, WORSE OVER THE PAST 3 WEEKS. PATIENT DENIES FEVER, CHILLS, SHORTNESS OF BREATH, CHEST PAIN, CONSTIPATION, NAUSEA, VOMITING, DIARRHEA, HEADACHE, OR OTHER COMPLAINTS. NO OTHER SYMPTOMS OR MODIFYING FACTORS AT THIS TIME. PATIENT IS ALERT, ORIENTED X 4, AND HAS STEADY GAIT. Chief Complaint: Abdominal Pain Time Seen by MD: 09:34 Primary Care Provider: jaden Reviewed Notes: Nurses Notes, Medications, Allergies Allergies: Coded Allergies: Penicillins (Verified Allergy, Unknown, 07/05/10) Home Meds Active Scripts Dicyclomine Hcl (Dicyclomine Hcl) 20 Mg Tab, 1 TAB PO TID, #30 TAB 1 Refill Prov:MARIELLE HERNANDEZ 06/21/25 Cephalexin Monohydrate (Cephalexin) 500 Mg Cap, 1 CAP PO QID, #32 CAP Prov:MARIELLE HERNANDEZ 06/21/25 Pantoprazole Sodium Sesquihydr (Pantoprazole Sodium Dr) 40 Mg Tab, 40 MG PO DAILY, #60 TAB Prov:KARMEN HENRIQUEZ MD 05/19/24 Atorvastatin Calcium (ATORVASTATIN CALCIUM) 20 Mg Tab, 1 TAB PO DAILY, #30 TAB Prov:KARMEN HENRIQUEZ MD 05/19/24 Reported Medications Cholecalciferol (VITAMIN D3) 2,000 Unit Tab, 2000 UNIT OR, TAB 05/17/24 Amlodipine Besylate (Amlodipine Besylate) 5 Mg Tab, 5 MG PO DAILY for 30 Days, MG 05/17/24 Information Source: Patient Mode of Arrival: Ambulatory Timing: Months Duration: Since onset Prehospital treatment: None Quality: Aching, Cramping, Colicky Vomitus: None Stool: Normal Severity: Moderate Recent: None Recent Hx of: None Pain Location: Epigastric, RUQ, LUQ Modifying Factors: Nothing Associated sign and symptoms: Abdominal Pain Past Medical History PAST MEDICAL HISTORY: Arthritis, GERD, HTN Past Medical History (Other): NEUROPATHY Surgical History: Appendectomy, Hernia Repair, Hysterectomy SENIOR CONTRACTS MANAGER History: No Pertinent SENIOR CONTRACTS MANAGER History Family History Family History: Reviewed,noncontributory to illness, Unobtainable Social History Smoker: Non-Smoker Alcohol: Occasionally Drugs: Denies Drug Use Lives In: Home Constitutional: denies: chills, diaphoresis, fatigue, fever, malaise, sweats, weakness, others EENTM: denies: blurred vision, double vision, ear bleeding, ear discharge, ear drainage, ear pain, ear ringing, eye pain, eye redness, hearing loss, mouth pain, mouth swelling, nasal discharge, nose bleeding, nose congestion, nose pain, photophobia, tearing, throat pain, throat swelling, voice changes, others Respiratory: denies: cough, hemoptysis, orthopnea, SOB at rest, shortness of b reath, SOB with excertion, stridor, wheezing, others Cardiovascular: denies: chest pain, dizzy spells, diaphoresis, Dyspnea on exertion, edema, irregular heart beat, left arm pain, lightheadedness, palpitations, PND, syncope, others Gastrointestinal: reports: abdominal pain; denies: abdomen distended, blood streaked bowels, constipated, diarrhea, dysphagia, difficulty swallowing, hematemesis, melena, nausea, poor appetite, poor fluid intake, rectal bleeding, rectal pain, vomiting, others Genitourinary: denies: abnormal vagina bleeding, burning, dyspareunia, dysuria, flank pain, frequency, hematuria, incontinence, pain, , vagina discharge, urgency, others Neurological: denies: dizziness, fainting, headache, left sided numbness, left sided weakness, numbness, paresthesia, pre-existing deficit, right sided numbness, right sided weakness, seizure, speech problems, tingling, tremors, weakness, others Musculoskeletal: denies: back pain, gout, joint pain, joint swelling, muscle pain, muscle stiffness, neck pain, others Integumetry: denies: bruises, change in color, change in hair/nails, dryness, laceration, lesions, lumps, rash, wounds, others Allergic/Immunocompromised: denies: Difficulty Healing, Frequent Infections, Hives, Itching, others Hematologic/Lymphatic: denies: anemia, blood clots, easy bleeding, easy brui sing, swollen glands, others Endocrine: denies: excessive hunger, excessive sweating, excessive thirst, ex cessive urination, flushing, intolerance to cold, intolerance to heat, unexplained weight gain, unexplained weight loss, others Psychiatric: denies: anxiety, bipolar disorder, depression, hopeless, panic disorder, schizophrenia, sleepless, suicidal, others All Other Systems: Reviewed and Negative Physical Exam General Appearance: No Apparent Distress, Normal HEENT: Normal ENT Inspection, PERRL/EOMI, Pharynx Normal, TMs Normal Neck: Full Range of Motion, Non-Tender, Normal, Normal Inspection Respiratory: Chest Non-Tender, Lungs Clear, No Accessory Muscle Use, No Respiratory Distress, Normal Breath Sounds Cardiovascular: No Edema, No JVD, No Murmur, No Gallop, Normal Peripheral Pulses, Regular Rate/Rhythm Breast Exam: Deferred Gastrointestinal: Epigastric, No Organomegaly, No Pulsatile Mass, Normal Bowel Sounds, Soft, Tenderness (LEFT UPPER ABD TO EPIGASTRIC, NO GUARDING AND REBOUND TENDERNESS. ) Genitalia: Deferred Pelvic: Deferred Rectal: Deferred Extremities: No calf tenderness, Normal capillary refill, Normal inspection, Normal range of motion, Non-tender, No pedal edema Musculoskeletal : Apperance: Normal Neurologic: Alert, commercial account executive II-XII nml as Tested, No Motor Deficits, Normal Affect, Normal Mood, No Sensory Deficits Cerebellar Function: Normal Reflexes: Normal Skin: Dry, Normal Color, Warm Peripheral Pulses: 2+ carotid (R), 2+ carotid (L) Lymphatic: No Adenopathy Was a procedure done? Was a procedure done?: No GI differential Dx Differential Diagnosis: Gastritis/PUD, Gastroenteritis, Pancreatitis, UTI, Urolithiasis X-Ray, Labs, Meds, VS Vital Signs Date Time Temp Pulse Resp B/P (MAP) Pulse Ox O2 Delivery O2 Flow Rate FiO2 06/21/25 09:23 98.1 68 15 107/67 95 98.1 Lab Test 06/21/25 09:38 Range/Units White Blood Count 5.3 4.4-10.8 10^3/uL Red Blood Count 5.15 4.0-5.20 10^6/uL Hemoglobin 14.7 12.2-16.2 g/dL Hematocrit 44.5 36.0-46.0 % Mean Corpuscular Volume 86.5 80.0-100.0 fL Mean Corpuscular Hemoglobin 28.5 28.0-32.0 pg Mean Corpuscular Hemoglobin Concent 33.0 32.0-36.0 g/dL Red Cell Distribution Width 14.1 11.8-14.3 % Platelet Count 330 140-450 10^3/uL Mean Platelet Volume 8.7 6.9-10.8 fL Neutrophils (%) (Auto) 37.0-80.0 % Lymphocytes (%) (Auto) 10.0-50.0 % Monocytes (%) (Auto) 0.0-12.0 % Basophils (%) (Auto) 0.0-2.0 % Neutrophils # (Auto) 1.6-8.6 10 ^3/uL Lymphocytes # (Auto) 0.4-5.4 10 ^3/uL Monocytes # (Auto) 0-1.3 10 ^3/uL Differential Total Cells Counted 100.0 100 Neutrophils % (Manual) 37 37.0-80.0 Band Neutrophils % (Manual) 0 Lymphocytes % (Manual) 60 H 10.0-50.0 Monocytes % (Manual) 2 0-12 Eosinophils % (Manual) 1 0-7 Basophils % (Manual) 0 0.0-2.0 Metamyelocytes % (manual) 0 Myelocytes % (Manual) 0 Promyelocytes % (Manual) 0 Blast Cells % (Manual) 0 Reactive Lymphocytes 0 Platelet Estimate Adequate Red Blood Cell Morphology Normal Sodium Level 143 136-145 mmol/L Potassium Level 3.7 3.5-5.1 mmol/L Chloride Level 107 98-107 mmol/L Carbon Dioxide Level 25 20-31 mmol/L Anion Gap 11 5-15 Blood Urea Nitrogen 16 9-23 mg/dL Creatinine 0.87 0.550-1.02 mg/dL Glomerular Filtration Rate Calc 75 >90 mL/min BUN/Creatinine Ratio 18.4 10.0-20.0 Serum Glucose 99 74-106 mg/dL Calcium Level 9.5 8.7-10.4 mg/dL Total Bilirubin 0.7 0.2-1.0 mg/dL Aspartate Amino Transferase (AST) 27 13-40 U/L Alanine Aminotransferase (ALT) 27 7-40 U/L Alkaline Phosphatase 125 H 46-116 U/L Total Protein 8.0 5.7-8.2 g/dL Albumin 4.8 3.2-4.8 g/dL Lipase 37 12-53 U/L [facility] [address] [facility] [address] Ph: [phone] DIAGNOSTIC IMAGING Diagnostic Imaging Report : [id number] Signed PATIENT: DOYLE HART ACCT: [id number] UNIT: [id number] : 1960 LOC: ER ROOM / BED: / AGE / SEX: 64 / F ADM STATUS: REG ER SERVICE [id number] ORDERING PHYSICIAN: MARIELLE HERNANDEZ PROCEDURE(s): ABPL - CT AB PEL WO CON-NO ORAL OR IV REASON: EPIGASTRIC PAIN TO LEFT UPPER ABD AND MILLD BACK ORDER NUMBER(s): [id number], ACCESSION NUMBER(s): [id number] CLINICAL HISTORY: EPIGASTRIC PAIN TO LEFT UPPER ABD AND MILLD BACK TECHNIQUE: CT of the abdomen and pelvis was performed without IV contrast. This exam was performed according to our departmental dose optimization program. Up-to-date CT equipment and radiation dose reduction techniques are utilized as appropriate. CTDI 19 DLP 979 COMPARISON: None FINDINGS: Abdomen/Pelvis: The spleen, pancreas, adrenal glands, kidneys, gallbladder, liver, and bladder are grossly unremarkable. The uterus is absent. The abdominal aorta is normal in course and caliber. There are no significant atherosclerotic calcifications. There is no free intraperitoneal air or fluid. There is no enlarged abdominal pelvic lymph node. There is mild inflammation within the mesentery. There is no bowel wall thickening or dilatation. There has been right colon surgery and the appendix is absent. There is mild colonic diverticulosis. Other: The imaged lower thorax is unremarkable. No acute osseous abnormality is evident. IMPRESSION: No acute noncontrast CT abnormality in the abdomen / pelvis. Mild appearing mesenteric panniculitis. Mild colonic diverticulosis. Hysterectomy. ATED BY: PRIYANKA MENA MD DICTATED DATE/TIME: 06/21/25 1026 SIGNED BY: PRIYANKA MENA MD SIGNED DATE/TIME: 06/21/25 1026 CC: X-Ray, Labs, Meds, VS Comment EXTERNAL MEDICAL RECORDS REVIEWED: [NONE] INDEPENDENT HISTORIANS: [NONE] SOCIAL DETERMINANTS OF HEALTH: [NONE] LABS ORDERED: CBC, CMP, LIPASE, UA, EKG REVIEWED AND INTERPRETED RESULTS: CT ABD/PEL IMAGING ORDERED: CT ABD/PEL TREATMENTS ORDERED: NONE PROCEDURES PERFORMED: NONE CRITICAL CARE TIME: NONE I HAVE DISCUSSED THE PATIENT WITH THE ATTENDING PHYSICIAN DR. BRYANT AND HE AGREES WITH THE PATIENT'S PLAN OF CARE AND DISPOSITION. BASED ON HISTORY OF PRESENT ILLNESS, AND PHYSICAL EXAM, PATIENT WILL BE DISCHARGED HOME. DISCUSSED PLAN FOR DISCHARGE HOME WITH RX [KEFLEX]. MEDICATION WARNINGS GIVEN. SHARED DECISION MAKING: DISCUSSED WITH PATIENT THAT THEIR WORKUP WAS NORMAL. PATIENT INSTRUCTED TO FOLLOW UP WITH PRIMARY CARE PROVIDER IN 1-2 DAYS FOR RE-EV ALUATION OF SYMPTOMS. PATIENT VERBALIZES UNDERSTANDING TO RETURN TO ED FOR NEW OR WORSENING SYMPTOMS OR IF FOLLOW UP WITH PCP CANNOT BE OBTAINED. PATIENT FEELS COMFORTABLE GOING HOME AT THIS TIME. ALL QUESTIONS ADDRESSED AT TIME OF DISCHARGE. Time of 1ST Reevaluation: 11:48 Reevaluation 1ST: Improved Patient Education/Counseling: Diagnosis, Treatment, Need For Follow Up Family Education/Counseling: Diagnosis, Treatment, Need For Follow Up Medical Screening: No EMC Exist At This Time SEPSIS Sepsis Screen Date sepsis recognized/suspect: Jun 21, 2025 Time Sepsis recognized/suspect: 924 Recent Procedure: No On Antibiotic Therapy: No Respiratory Rate >20: No Heart Rate >90: No Temp<36 C (96.8 F) or >38.3 C: No SBP <90 or MAP <65 mmHG: No New Acute Mental Status Change: No Is the patient on CPAP, BIPAP,: No Physician Orders Urinalysis (06/21/25 09:25) Electrocardigram (06/21/25 09:27) Ct Ab Pel Wo Con-No Oral Or Iv (06/21/25 09:32) Vital Signs Date Time Temp Pulse Resp B/P (MAP) Pulse Ox O2 Delivery O2 Flow Rate FiO2 06/21/25 09:23 98.1 68 15 107/67 95 98.1 Laboratory Tests Test 06/21/25 09:38 White Blood Count 5.3 10^3/uL (4.4-10.8) Departure 1 Departure Time of Disposition: 11:48 Impression: Primary Impression: Mesenteric panniculitis Disposition: 01 HOME / SELF CARE / HOMELESS Condition: Stable Additional Instructions: FOLLOW-UP WITH PCP IN 1 TO 2 DAYS. TAKE MEDICATIONS PRESCRIBED. RETURN TO ED FOR ANY NEW OR WORSENING SYMPTOMS. e-Prescriptions Dicyclomine Hcl (Dicyclomine Hcl) 20 Mg Tab 1 TAB PO TID, #30 TAB 1 Refill Prov: MARIELLE HERNANDEZ 06/21/25 Cephalexin Monohydrate (Cephalexin) 500 Mg Cap 1 CAP PO QID, #32 CAP Prov: MARIELLE HERNANDEZ 06/21/25 Discharged With: Self, Spouse Critical Care Note Critical Care Time?: No Stability Stability form required: No Heart Score Heart Score: Heart Score Response (Comments) Value History N/A 0 EKG N/A 0 Age N/A 0 Risk Factors N/A 0 Troponin N/A 0 Total 0 I personally scribed for MARIELLE HERNANDEZ ([email or web address]) on 06/21/25 at 09:36. Electronically submitted by Chaim Gomez ([email or web address]). I personally scribed for MARIELLE HERNANDEZ ([email or web address]) on 06/21/25 at 10:41. Electronically submitted by Chaim Gomez ([email or web address]). MARIELLE HERNANDEZ Jun 21, 2025 09:36
[2025-06-21 09:56] LABS: Hematocrit 44.5 % (36.0-46.0); Hemoglobin 14.7 g/dL (12.2-16.2); Mean Corpuscular Hemoglobin 28.5 pg (28.0-32.0); Mean Corpuscular Volume 86.5 fL (80.0-100.0)
[2025-06-21 10:04] LABS: Alanine Aminotransferase 27 U/L (7-40); Anion Gap 11 (5-15); BUN/Creatinine Ratio 18.4 (10.0-20.0); Blood Urea Nitrogen 16 mg/dL (9-23); Calcium 9.5 mg/dL (8.7-10.4); Carbon Dioxide 25 mmol/L (20-31); Chloride 107 mmol/L (98-107); Glucose 99 mg/dL (74-106); Potassium 3.7 mmol/L (3.5-5.1); Sodium 143 mmol/L (136-145); Total Protein 8.0 g/dL (5.7-8.2)
[2025-06-21 10:05] LABS: Bilirubin, Total 0.7 mg/dL (0.2-1.0)
[2025-06-21 10:09] LABS: Albumin 4.8 g/dL (3.2-4.8); Alkaline Phosphatase 125 U/L (46-116)
[2025-06-21 10:13] LABS: RBC Morphology Normal; Total Cells Counted 100.0 (100)
[2025-06-21 10:19] LABS: Lipase 37 U/L (12-53)
--- NOTE | 2025-06-21 10:28 | DVH ---
CLINICAL HISTORY: EPIGASTRIC PAIN TO LEFT UPPER ABD AND MILLD BACK TECHNIQUE: CT of the abdomen and pelvis was performed without IV contrast. This exam was performed according to our departmental dose optimization program. Up-to-date CT equipment and radiation dose reduction techniques are utilized as appropriate. CTDI 19 DLP 979 COMPARISON: None FINDINGS: Abdomen/Pelvis: The spleen, pancreas, adrenal glands, kidneys, gallbladder, liver, and bladder are grossly unremarkable. The uterus is absent. The abdominal aorta is normal in course and caliber. There are no significant atherosclerotic calcifications. There is no free intraperitoneal air or fluid. There is no enlarged abdominal pelvic lymph node. There is mild inflammation within the mesentery. There is no bowel wall thickening or dilatation. There has been right colon surgery and the appendix is absent. There is mild colonic diverticulosis. Other: The imaged lower thorax is unremarkable. No acute osseous abnormality is evident. IMPRESSION: No acute noncontrast CT abnormality in the abdomen / pelvis. Mild appearing mesenteric panniculitis. Mild colonic diverticulosis. Hysterectomy.
[2025-06-21] MEDS ORDERED: CEPH500C PO (11:46)
[2025-06-21] MEDS ORDERED: DICY20TA PO (11:46)
--- NOTE | 2025-06-26 12:11 | ECG ---
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
== END 2025-06-21 12:28 | disposition home or self-care (01) ==
LOC: ER 09:16
DX: K65.4 Sclerosing mesenteritis (principal); Z88.0 Allergy status to penicillin; Z79.899 Other long term (current) drug therapy; Z90.49 Acquired absence of other specified parts of digestive tract; Z90.710 Acquired absence of both cervix and uterus; Z98.890 Other specified postprocedural states
CPT/HCPCS: 36415; 74176; 80053; 83690; 85007; 85027; 93005